=== PATIENT | male | born 1990 | race Caucasian/White ===

== ENCOUNTER → 2018-11-08 | Outpatient (CLI) | payer BC ==
--- NOTE | 2018-11-08 15:51 | MR ---
EXAMINATION TYPE: MR knee LT wo con DATE OF EXAM: 11/08/2018 COMPARISON: None HISTORY: Left Knee pain approximately 1 year. Pain is most exaggerated medially. TECHNIQUE: Multiplanar, multisequence imaging of the left knee is performed without IV contrast. FINDINGS: MEDIAL MENISCUS: There is a very small radial tear of the free edge of the posterior horn of the medi al meniscus. Meniscal body and anterior horn are intact and unremarkable. LATERAL MENISCUS: Anterior and posterior horns are intact without tear. CRUCIATE LIGAMENTS: The anterior and posterior cruciate ligaments are intact and unremarkable. COLLATERAL LIGAMENTS: The medial collateral ligament and lateral collateral ligament complex are inta ct and unremarkable. EXTENSOR MECHANISM: Visualized quadriceps and patellar tendons are intact. EFFUSION: Very small suprapatellar joint effusion appears uncomplicated. POPLITEAL CYST: No sizable popliteal/houser cyst. TRICOMPARTMENT SPACES: There are very small tricompartmental osteophytes noted. CARTILAGE: Chondral thinning is seen anteriorly of the medial compartment and of the lateral compartm ent with mild signal heterogeneity. No full-thickness defect is seen. Patellofemoral cartilage demons trates a single focal fissure in the trochlear cartilage but is otherwise unremarkable. BONE MARROW SIGNAL: No focal abnormal marrow signal is appreciated. Early subchondral cyst formation is seen of the medial tibial plateau posteriorly near the insertion of the meniscal root and posterio r cruciate ligament. IMPRESSION: 1. Very small radial tear of the free edge of the posterior horn of the medial meniscus. 2. Mild tricompartmental arthrosis and very minimal tricompartmental chondrosis. 3. Small uncomplicated suprapatellar joint effusion.
== END | disposition home or self-care (01) ==
LOC: RADMRIMAIN 11:46
PROVIDERS: ATTEND Orthopaedic Surgery Sports Medicine
DX: S83.242A Other tear of medial meniscus, current injury, left knee, initial encounter (principal); S83.282A Other tear of lateral meniscus, current injury, left knee, initial encounter; M17.12 Unilateral primary osteoarthritis, left knee; M25.462 Effusion, left knee

== ENCOUNTER 2018-11-14 16:44 | Inpatient (IN) | payer BC ==
[2018-11-14 17:19] LABS: Glucose,Whole Blood 389 mg/dL (75-99)
[2018-11-14] MEDS ORDERED: NALOXONE 0.4 MG/ML 1 ML VIAL IV PRN (17:43)
[2018-11-14] MEDS ORDERED: SODIUM CHLORIDE 0.9% 1,000 ML IV SCH (17:45)
[2018-11-14] MEDS ORDERED: SODIUM CHLORIDE 0.9% 1,000 ML IV ONE (18:19)
[2018-11-14 18:28] LABS: HCT 43.6 % (39.0-53.0); HGB 15.4 gm/dL (13.0-17.5); MCH 30.4 pg (25.0-35.0); MCHC 35.2 g/dL (31.0-37.0); MCV 86.3 fL (80.0-100.0); Mean Platelet Volume 6.4; Platelet Count 328 k/uL (150-450); RBC 5.06 m/uL (4.30-5.90); RDW 12.5 % (11.5-15.5); WBC 10.9 k/uL (3.8-10.6)
[2018-11-14 18:36] LABS: ALT 35 U/L (21-72); AST 34 U/L (17-59); African American GFR (CKD) >90 (>60 ml/min/1.73 sqM); Albumin 4.7 g/dL (3.5-5.0); Alkaline Phosphatase 92 U/L (38-126); Anion Gap 12 mmol/L; Blood Urea Nitrogen 23 mg/dL (9-20); Calcium 9.6 mg/dL (8.4-10.2); Carbon Dioxide 28 mmol/L (22-30); Chloride 92 mmol/L (98-107); Glucose 359 mg/dL (74-99); Magnesium 1.8 mg/dL (1.6-2.3); Potassium 4.8 mmol/L (3.5-5.1); Sodium 132 mmol/L (137-145); Total Bilirubin 0.9 mg/dL (0.2-1.3); Total Protein 8.1 g/dL (6.3-8.2)
--- NOTE | 2018-11-14 19:21 | P.HPIM ---
History of Present Illness H&P Date: 11/14/18 Patient is a 27-year-old male with no known PMH who was sent in as a direct admit from Dr. Nguyen's office. The patient states that he was in his usual state of health until about 2-3 days ago when he noticed that his vision was somewhat blurry intermittently. During that time he also noticed that he was urinating more and having to drink more water. He also endorsed occasional unexplained headaches over the past few days. The patient works as a teacher in [place] and was on his way back when he turned around due to his blurred vision and went to see Dr. Nguyen, where he underwent blood work. He was found to be hyperglycemic and was subsequent sent to the hospital. He denied any recent URIs. He also denied chest pain, shortness of breath, nausea, vomiting, diaphoresis, diarrhea, weakness, numbness, or abdominal pain. Review of Systems Pertinent positives and negatives as discussed in HPI, a complete review of systems was performed and all other systems are negative. Past Medical History Past Medical History: No Reported History History of Any Multi-Drug Resistant Organisms: None Reported Past Surgical History: No Surgical Hx Reported Past Anesthesia/Blood Transfusion Reactions: No Reported Reaction Past Psychological History: No Psychological Hx Reported Smoking Status: Never smoker Past Alcohol Use History: None Reported Past Drug Use History: None Reported Medications and Allergies Allergies Allergy/AdvReac Type Severity Reaction Status Date / Time No Known Allergies Allergy Verified 11/14/18 18:02 Physical Exam Vitals: Intake and Output 11/14/18 11/14/18 11/14/18 06:59 14:59 22:59 Other: Weight 102.6 kg General: non toxic, no distress, appears at stated age, obese Derm: no unusual rashes/lesions no unusual ecchymoses, warm, dry Head: atraumatic, normocephalic, symmetric Eyes: EOMI, no lid lag, anicteric sclera, pupils equal round reactive to light ENT: Nose and ears atraumatic, no thrush, no pharyngeal erythema Neck: No thyromegaly, no cervical lymphadenopathy, trachea midline, supple Mouth: no lip lesion, mucus membranes dry Cardiovascular: S1S2 reg, no murmur, positive posterior tibial pulse bilateral, no edema, capillary refill less than 2 seconds Lungs: CTA bilateral, no rhonchi, no rales , no accessory muscle use Abdominal: soft, nontender to palpation, no guarding, no appreciable organo megaly, normal bowel sounds Ext: no gross muscle atrophy, muscle strength 5 out of 5 in all 4 extremities grossly, no contractures, Neuro: CN II-XI grossly intact, light touch intact all 4 extremities, finger to nose within normal limits, Psych: Alert, oriented, appropriate affect Results CBC & Chem 7: 11/14/18 18:15 11/14/18 18:15 Labs: Abnormal Lab Results - Last 24 Hours (Table) 11/14/18 11/14/18 Range/Units 17:17 18:15 WBC 10.9 H (3.8-10.6) k/uL POC Glucose (mg/dL) 389 H (75-99) mg/dL Thrombosis Risk Factor Assmnt - Choose All That Apply Any of the Below Risk Factors Present?: No Assessment and Plan Plan: Newly diagnosed type 1 diabetes mellitus, with hyperglycemia, not in DKA -Will start levemir 20 U qhs with Insulin sliding scale -IVFs 200 cc/hr -Diabetes teaching -Monitor electrolytes and replace accordingly DVT prophylaxis -Lovenox The patient is admitted with an anticipated less than 2 midnight stay for evaluation of newly diagnosed type 1 DM CODE STATUS: Full Code Discussed with: Patient, family Anticipated discharge date: 11/16/[address]: Home A total of 40 minutes was spent on the care of this complex patient more than 50% of the time was spent in counseling and care coordination.
[2018-11-14] MEDS: SODIUM CHLORIDE 0.9% 1,000 ML IV SCH ×2 (19:29→23:00)
[2018-11-14] MEDS ORDERED: INSULIN DETEMIR (LEVEMIR) 100 UNIT/ML SYR SQ SCH (20:00)
[2018-11-14 20:20] LABS: Glucose,Whole Blood 300 mg/dL (75-99)
[2018-11-14 20:51] VITALS: RESP 18
[2018-11-14] MEDS: INSULIN ASPART (NovoLOG) 100 UNIT/ML VIAL SQ SCH (21:11)
[2018-11-14 23:57] LABS: Glucose,Whole Blood 189 mg/dL (75-99)
[2018-11-15 02:09] LABS: Glucose,Whole Blood 141 mg/dL (75-99)
[2018-11-15 02:16] LABS: Hemoglobin A1C 7.9 % (4.0-6.0)
[2018-11-15] MEDS: SODIUM CHLORIDE 0.9% 1,000 ML IV SCH (04:26)
[2018-11-15 04:31] LABS: Appearance,Urine Clear (Clear); Bilirubin,Urine Negative (Negative); Blood,Urine Trace (Negative); Color,Urine Yellow; Glucose,Urine (UA) 4+ (Negative); Ketones,Urine Trace (Negative); Leukocyte Esterase,Urine Negative (Negative); Mucus,Urine Rare /hpf; Nitrite,Urine Negative (Negative); PH, Urine 6.5 (5.0-8.0); Protein,Urine Negative (Negative); RBC,Urine 1 /hpf (0-5); Specific Gravity,Urine 1.043 (1.001-1.035); Urobilinogen,Urine <2.0 mg/dL (<2.0); WBC,Urine <1 /hpf (0-5)
[2018-11-15 05:57] LABS: Glucose,Whole Blood 163 mg/dL (75-99)
[2018-11-15] MEDS: INSULIN ASPART (NovoLOG) 100 UNIT/ML VIAL SQ SCH ×2 (06:26→12:43)
[2018-11-15 07:03] LABS: Basophils # (A) 0.1 k/uL (0-0.2); Basophils % (A) 1 %; Eosinophils # (A) 0.2 k/uL (0-0.7); Eosinophils % (A) 2 %; HCT 39.4 % (39.0-53.0); HGB 13.7 gm/dL (13.0-17.5); Lymphocytes # (A) 3.1 k/uL (1.0-4.8); Lymphocytes % (A) 36 %; MCH 30.4 pg (25.0-35.0); MCHC 34.9 g/dL (31.0-37.0); MCV 87.1 fL (80.0-100.0); Mean Platelet Volume 6.8; Monocytes # (A) 0.3 k/uL (0-1.0); Monocytes % (A) 4 %; Neutrophils # (A) 4.8 k/uL (1.3-7.7); Neutrophils % (A) 56 %; Platelet Count 278 k/uL (150-450); RBC 4.52 m/uL (4.30-5.90); RDW 13.8 % (11.5-15.5); WBC 8.6 k/uL (3.8-10.6)
[2018-11-15 07:08] LABS: African American GFR (CKD) >90 (>60 ml/min/1.73 sqM); Anion Gap 8 mmol/L; Blood Urea Nitrogen 16 mg/dL (9-20); Calcium 8.3 mg/dL (8.4-10.2); Carbon Dioxide 25 mmol/L (22-30); Chloride 103 mmol/L (98-107); Glucose 162 mg/dL (74-99); Magnesium 1.7 mg/dL (1.6-2.3); Potassium 4.1 mmol/L (3.5-5.1); Sodium 136 mmol/L (137-145)
[2018-11-15] MEDS ORDERED: ENOXAPARIN 40 MG/0.4 ML SYRINGE SQ SCH (09:00)
[2018-11-15 11:17] VITALS: BMI 31.8
[2018-11-15 11:35] VITALS: BP 130/81; PULSE 77; TEMP 98.4
[2018-11-15 11:59] LABS: Glucose,Whole Blood 223 mg/dL (75-99)
--- NOTE | 2018-11-15 14:57 | P.DS ---
Providers Date of admission: 11/14/18 16:59 Expected date of discharge: 11/15/18 Attending physician: Geeta Orozco MD Primary care physician: Trey Nguyen [facility] Course: Patient is a 27-year-old male with no known PMH who was sent in as a direct admit from Dr. Nguyen's office. The patient states that he was in his usual state of health until about 2-3 days ago when he noticed that his vision was somewhat blurry intermittently. During that time he also noticed that he was urinating more and having to drink more water. He also endorsed occasional unexplained headaches over the past few days. 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 Nguyen, where he underwent blood work. He was found to be hyperglycemic and was subsequent sent to the hospital. He denied any recent URIs. He also denied chest pain, shortness of breath, nausea, vomiting, diaphoresis, diarrhea, weakness, numbness, or abdominal pain. Patient's blood sugar range from 389-141 throughout his hospitalization. Patient reported a significant improvement in his blurry vision and polyuria prior to discharge. Diabetes education was consulted and recommended discharge home with no evidence as this appeared to be a type 2 diabetes mellitus picture. Patient was seen and examined. No acute events overnight. Blood glucose after meal is 223. Patient denies any chest pain, shortness of breath or palpitations. No nausea or vomiting. No fever or chills. Looking forward to going home. General: [non toxic], [no distress], [appears at stated age] Derm: [warm], [dry] Head: [atraumatic], [normocephalic], [symmetric] Eyes: [EOMI], [no lid lag], [anicteric sclera] Mouth: [no lip lesion], [mucus membranes moist] Cardiovascular: [S1S2 reg], [no murmur], [positive DP pulse bilateral] Lungs: [CTA bilateral], [no rhonchi, no rales] , [no accessory muscle use] Ext: [no gross muscle atrophy], [no edema], [no contractures] Neuro: [no focal neuro deficits] Psych: [Alert], [oriented], [appropriate affect] Type 2 diabetes mellitus with hyperglycemia not in DKA [id number] glucose between 141 and 389. Discussed with diabetes education Que, recommends no insulin on discharge as patient is likely type II diabetic. Patient has been advised to check his blood sugars 4 times a day and record of prior to seeing Dr. Nguyen on . Diabetic supplies at bedside. Family is at bedside. Patient verbalized understanding of the plan. Symptoms of DKA discussed and when to seek medical attention. Patient Condition at Discharge: Stable Plan - Discharge Summary Discharge Rx Participant: Yes New Discharge Prescriptions: New metFORMIN HCL [Glucophage] 500 mg PO BID #60 tab Discharge Medication List metFORMIN HCL [Glucophage] 500 mg PO BID #60 tab 11/15/18 [Rx] Follow up Appointment(s)/Referral(s): Trey Nguyen MD [Primary Care Provider] - 11/17/18 10:45 am (bring a log of your blood glucose readings) Patient Instructions/Handouts: Insulin Aspart, Recombinant (By injection), Insulin Aspart Protamine/Insulin Aspart (By injection), Insulin Detemir (By injection), Diabetic Ketoacidosis (GEN), Type 2 Diabetes in Adults: New Diagnosis (DC), Basic Carbohydrate Counting (DC) Discharge Disposition: HOME SELF-CARE
== END 2018-11-15 15:30 | disposition home or self-care (01) | DRG 639 ==
LOC: 3SCARD 16:59
PROVIDERS: ADMIT Internal Medicine; ATTEND Internal Medicine
DX: E11.65 Type 2 diabetes mellitus with hyperglycemia (principal)
CPT/HCPCS: 80048; 80053; 81001; 83036; 83605; 83735; 85025; 85027